=== PATIENT | female | born 1965 | race Caucasian/White ===

== ENCOUNTER 2018-11-30 13:38 | Emergency (ER) | payer SELFPAY | END 2018-11-30 13:41 | disposition left against medical advice (07) | LOC: FTE 13:41 | DX: Z53.21 Procedure and treatment not carried out due to patient leaving prior to being seen by health care provider (principal) ==

== ENCOUNTER 2018-12-05 18:44 | Emergency (ER) | payer MEDICAID ==
[2018-12-05] MEDS: HYDROCODONE/APAP (5/325) TAB PO (19:58)
== END 2018-12-05 21:52 | disposition home or self-care (01) ==
LOC: FTE 18:44
DX: S80.212A Abrasion, left knee, initial encounter (principal); V49.59XA Passenger injured in collision with other motor vehicles in traffic accident, initial encounter
CPT/HCPCS: 72040; 73562; 73610-RT; 99284-25

== ENCOUNTER 2019-02-19 13:49 | Inpatient (IN) | payer MEDICAID ==
[2019-02-19] MEDS ORDERED: morphine 4 MG/ML VIAL IV (17:38)
[2019-02-19 17:47] LABS: ADD MAN DIFF? NO
[2019-02-19 18:11] LABS: WHITE BLOOD COUNT 11.9 10^3/ul (4.8-10.8)
[2019-02-19 18:11] LABS: BASOPHILS % 0.6 % (0.0-2.0); EOSINOPHILS # 0.2 10^3/ul (0.0-0.5); HEMATOCRIT 44.8 % (37.0-47.0); HEMOGLOBIN 14.4 g/dl (12.0-16.0); LYMPHOCYTES % 33.8 % (15.0-51.0); MEAN CORPUSCULAR HEMOGLOBIN 28.8 pg (29.0-33.0); MEAN CORPUSCULAR HGB CONC 32.1 g/dl (32.0-37.0); MEAN CORPUSCULAR VOLUME 89.6 fl (82.0-101.0); MEAN PLATELET VOLUME 10.4 fl (7.4-10.4); MONOCYTE # 0.9 10^3/ul (0.3-0.9); MONOCYTES % 7.2 % (0.0-11.0); NEUTROPHIL # 6.7 10^3/ul (1.6-7.5); NEUTROPHILS % 56.1 % (39.0-77.0); PLATELET COUNT 425 10^3/UL (140-415); RED CELL DISTRIBUTION WIDTH 13.4 % (11.5-14.5)
[2019-02-19 18:12] LABS: BASOPHIL # 0.1 10^3/ul (0.0-0.1)
[2019-02-19] MEDS: ASPIRIN 81 MG TAB PO (18:30)
[2019-02-19] MEDS: ONDANSETRON 4 MG INJ IV (18:30)
[2019-02-19] MEDS: HYDROmorphONE 0.5 MG/0.5 ML SYG IV (18:30)
[2019-02-19] MEDS: SOD CHLORIDE 0.9% 1,000 ML IV (18:31)
[2019-02-19 18:32] LABS: ALANINE AMINOTRANSFERASE 21 IU/L (13-69); ALBUMIN 4.6 g/dl (3.3-4.9); ALBUMIN/GLOBULIN RATIO 1.35; ALKALINE PHOSPHATASE 91 IU/L (42-121); ANION GAP 9 (5-13); ASPARTATE AMINO TRANSFERASE 31 IU/L (15-46); BILIRUBIN,INDIRECT 0.1 mg/dl (0-1.1); BILIRUBIN,TOTAL 0.1 mg/dl (0.2-1.3); BLOOD UREA NITROGEN 15 mg/dl (7-20); CALCIUM 9.7 mg/dl (8.4-10.2); CARBON DIOXIDE 27 mmol/L (21-31); CHLORIDE 105 mmol/L (97-110); CREATININE 0.66 mg/dl (0.44-1.00); Estimated GFR > 60 mL/min (>60); GLUCOSE 83 mg/dl (70-220); LIPASE 83 U/L (23-300); POTASSIUM 4.7 mmol/L (3.5-5.1); SODIUM 141 mmol/L (135-144)
[2019-02-19 18:44] LABS: TROPONIN-I < 0.012 ng/ml (0.000-0.120)
[2019-02-19 19:15] LABS: ADD UMIC YES; UR ASCORBIC ACID NEGATIVE (NEGATIVE); UR BILIRUBIN (Dip) NEGATIVE (NEGATIVE); UR BLOOD (Dip) 2+ mg/dL (NEGATIVE); UR CLARITY CLEAR (CLEAR); UR COLOR STRAW (YELLOW); UR GLUCOSE (Dip) NEGATIVE (NEGATIVE); UR KETONES (Dip) NEGATIVE (NEGATIVE); UR LEUKOCYTE ESTERASE (Dip) NEGATIVE Leu/ul (NEGATIVE); UR NITRITE (Dip) NEGATIVE (NEGATIVE); UR RBC 1 /HPF (0-5); UR SPECIFIC GRAVITY (Dip) 1.006 (1.003-1.030); UR TOTAL PROTEIN (Dip) NEGATIVE (NEGATIVE); UR UROBILINOGEN (Dip) NEGATIVE (NEGATIVE); UR WBC 0 /HPF (0-5)
[2019-02-19] MEDS ORDERED: ACETAMINOPHEN 325 MG TAB PO (19:30)
[2019-02-19] MEDS ORDERED: NITROGLYCERIN (SL) 0.4 MG TAB SL (19:30)
[2019-02-19] MEDS ORDERED: NACL 0.9% 3 ML SYG IV (19:30)
[2019-02-19] MEDS: HYDROCODONE/APAP (5/325) TAB PO (20:42)
[2019-02-20] MEDS: DIAZEPAM 5 MG TAB PO (01:09)
[2019-02-20 01:26] LABS: TROPONIN-I < 0.012 ng/ml (0.000-0.120)
[2019-02-20] MEDS: OXYCODONE/ACETAMINOPHEN (10/325) TAB PO ×2 (02:12→13:55)
[2019-02-20] MEDS: ASPIRIN 81 MG TAB PO (09:53)
[2019-02-20] MEDS ORDERED: KETOROLAC 15 MG INJ IV (10:30)
[2019-02-20] MEDS ORDERED: HYDROCODONE/APAP (5/325) TAB PO (10:30)
[2019-02-20] MEDS: KETOROLAC 15 MG INJ IV (11:30)
[2019-02-20] MEDS: NICOTINE (14 MG/24 HR) PATCH TRANSDERM (13:57)
[2019-02-20 14:50] LABS: ADD MAN DIFF? NO
[2019-02-20 14:54] LABS: WHITE BLOOD COUNT 8.5 10^3/ul (4.8-10.8)
[2019-02-20 14:54] LABS: BASOPHIL # 0.1 10^3/ul (0.0-0.1); BASOPHILS % 0.6 % (0.0-2.0); EOSINOPHILS # 0.2 10^3/ul (0.0-0.5); EOSINOPHILS % 2.5 % (0.0-7.0); HEMATOCRIT 39.9 % (37.0-47.0); HEMOGLOBIN 12.9 g/dl (12.0-16.0); LYMPHOCYTES # 2.6 10^3/ul (0.8-2.9); LYMPHOCYTES % 30.4 % (15.0-51.0); MEAN CORPUSCULAR HEMOGLOBIN 28.8 pg (29.0-33.0); MEAN CORPUSCULAR HGB CONC 32.3 g/dl (32.0-37.0); MEAN CORPUSCULAR VOLUME 89.1 fl (82.0-101.0); MONOCYTE # 0.7 10^3/ul (0.3-0.9); MONOCYTES % 7.8 % (0.0-11.0); NEUTROPHILS % 58.6 % (39.0-77.0); PLATELET COUNT 326 10^3/UL (140-415); RED BLOOD COUNT 4.48 10^6/ul (4.20-5.40); RED CELL DISTRIBUTION WIDTH 13.4 % (11.5-14.5)
[2019-02-20 15:20] LABS: ALANINE AMINOTRANSFERASE 19 IU/L (13-69); ALBUMIN 3.7 g/dl (3.3-4.9); ALBUMIN/GLOBULIN RATIO 1.23; ALKALINE PHOSPHATASE 73 IU/L (42-121); ANION GAP 7 (5-13); ASPARTATE AMINO TRANSFERASE 16 IU/L (15-46); BLOOD UREA NITROGEN 14 mg/dl (7-20); CALCIUM 9.3 mg/dl (8.4-10.2); CARBON DIOXIDE 27 mmol/L (21-31); CHLORIDE 108 mmol/L (97-110); CHOL/HDL RATIO 4.3 RATIO; CHOLESTEROL 169 mg/dl (100-200); CREATININE 0.64 mg/dl (0.44-1.00); Estimated GFR > 60 mL/min (>60); GLUCOSE 86 mg/dl (70-220); HDL CHOLESTEROL 39 mg/dl (37-92); LDL CHOLESTEROL,CALCULATED 111 mg/dl; MAGNESIUM 1.8 mg/dl (1.7-2.5); POTASSIUM 4.1 mmol/L (3.5-5.1); SODIUM 142 mmol/L (135-144); TOTAL PROTEIN 6.7 g/dl (6.1-8.1); TRIGLYCERIDES 96 mg/dl (0-149)
[2019-02-20 15:26] LABS: HEMOGLOBIN A1C 5.4 % (0-5.9)
[2019-02-20 15:29] LABS: TROPONIN-I < 0.012 ng/ml (0.000-0.120)
[2019-02-20 16:14] LABS: THYROID STIMULATING HORMONE 0.322 MIU/L (0.465-4.680)
== END 2019-02-20 17:40 | disposition home or self-care (01) | DRG 313 ==
LOC: E/R 13:49 → 6WM 19:19
DX: R07.9 Chest pain, unspecified (principal); K21.9 Gastro-esophageal reflux disease without esophagitis; F32.9 Major depressive disorder, single episode, unspecified; F41.9 Anxiety disorder, unspecified; F17.200 Nicotine dependence, unspecified, uncomplicated; G89.29 Other chronic pain; F45.42 Pain disorder with related psychological factors
CPT/HCPCS: 36415; 71045; 80053; 80061; 81001; 83036; 83690; 83735; 84443; 84484; 85025; 93005; 96374; 96375; 99285-25

== ENCOUNTER 2019-05-09 09:34 | Emergency (ER) | payer SELFPAY, MEDICAID ==
[2019-05-09] MEDS: ASPIRIN 325 MG TAB PO (12:51)
[2019-05-09] MEDS: ACETAMINOPHEN 325 MG TAB PO (12:51)
[2019-05-09 12:53] LABS: ADD MAN DIFF? NO
[2019-05-09 12:55] LABS: WHITE BLOOD COUNT 10.5 10^3/ul (4.8-10.8)
[2019-05-09 12:55] LABS: BASOPHILS % 0.4 % (0.0-2.0); EOSINOPHILS # 0.1 10^3/ul (0.0-0.5); EOSINOPHILS % 0.9 % (0.0-7.0); HEMATOCRIT 40.5 % (37.0-47.0); HEMOGLOBIN 13.2 g/dl (12.0-16.0); LYMPHOCYTES # 2.5 10^3/ul (0.8-2.9); LYMPHOCYTES % 23.7 % (15.0-51.0); MEAN CORPUSCULAR HEMOGLOBIN 28.3 pg (29.0-33.0); MEAN CORPUSCULAR HGB CONC 32.6 g/dl (32.0-37.0); MEAN CORPUSCULAR VOLUME 86.7 fl (82.0-101.0); MEAN PLATELET VOLUME 9.8 fl (7.4-10.4); MONOCYTE # 0.5 10^3/ul (0.3-0.9); MONOCYTES % 4.9 % (0.0-11.0); NEUTROPHIL # 7.4 10^3/ul (1.6-7.5); PLATELET COUNT 384 10^3/UL (140-415); RED BLOOD COUNT 4.67 10^6/ul (4.20-5.40)
[2019-05-09 13:12] LABS: ANION GAP 7 (5-13); BLOOD UREA NITROGEN 12 mg/dl (7-20); CALCIUM 9.7 mg/dl (8.4-10.2); CARBON DIOXIDE 28 mmol/L (21-31); CHLORIDE 105 mmol/L (97-110); CREATININE 0.56 mg/dl (0.44-1.00); Estimated GFR > 60 mL/min (>60); GLUCOSE 109 mg/dl (70-220); POTASSIUM 4.1 mmol/L (3.5-5.1); SODIUM 140 mmol/L (135-144)
[2019-05-09 13:24] LABS: TROPONIN-I < 0.012 ng/ml (0.000-0.120)
[2019-05-09 13:27] LABS: D-DIMER 342.99 ng/ml (<460)
[2019-05-09 16:10] LABS: AMPHETAMINE/METHAMPHETAMINE Negative (NEGATIVE); BARBITURATES Negative (NEGATIVE); CANNABINOIDS Negative (NEGATIVE); COCAINE Negative (NEGATIVE); OPIATES Positive (NEGATIVE)
[2019-05-09 16:16] LABS: BENZODIAZEPINES Positive (NEGATIVE)
[2019-05-09 16:38] LABS: TROPONIN-I < 0.012 ng/ml (0.000-0.120)
[2019-05-09] MEDS: LORAZEPAM 1 MG TAB PO (17:10)
== END 2019-05-09 18:00 | disposition home or self-care (01) ==
LOC: E/R 09:34
DX: R07.9 Chest pain, unspecified (principal); F17.210 Nicotine dependence, cigarettes, uncomplicated; F41.9 Anxiety disorder, unspecified
CPT/HCPCS: 36415; 71045; 80048; 80307; 84484; 85025; 85378; 93005; 99285-25